=== PATIENT | male | born 1940 | race Caucasian/White ===

== ENCOUNTER 2022-09-19 14:43 | Outpatient (CLI) | payer OTHER, SELFPAY ==
[2022-09-19 15:16] LABS: Alanine Aminotransferase 15 U/L (6-50); Alkaline Phosphatase 61 U/L (38-126); Anion Gap 15 mmol/L (8-16); Aspartate Amino Transferase 20 U/L (17-59); Bilirubin,Total 0.8 mg/dL (0.2-1.3); Blood Urea Nitrogen 12 mg/dL (9-20); Calcium 8.4 mg/dL (8.4-10.2); Carbon Dioxide 21 mmol/L (22-30); Chloride 96 mmol/L (98-107); Estimated Glomerular Filt Rate > 60; Glucose 102 mg/dL (65-110); Potassium 4.4 mmol/L (3.4-5.0); Sodium 132 mmol/L (137-145)
[2022-09-19 15:23] LABS: NT Pro B Type Natriuretic Pept 1040 pg/mL (5-100)
== END 2022-09-19 14:44 | disposition home or self-care (01) ==
LOC: ANHLAB 14:44
PROVIDERS: PCP Family Medicine; Visit Provider Nurse Practitioner Family
DX: I50.9 Heart failure, unspecified (principal); R06.02 Shortness of breath
CPT/HCPCS: 36415; 80053; 83880

== ENCOUNTER 2022-09-25 09:14 | Outpatient (CLI) | payer OTHER, SELFPAY ==
--- NOTE | ~2022-09-25 | XR_ITS ---
XR chest 2V 09/25/2022 09:44 Indication: Heart failure. Bilateral lower extremity swelling. Procedure: 2 view chest Comparison: 12/30/2012 Findings: There are chronic lingular infiltrates, most likely atelectasis/scarring. Heart size normal . There is atherosclerosis of the aorta. No acute focal pneumonia, edema or effusion. There are old l eft lower rib fractures. Impression: 1: No acute cardiopulmonary disease. 2: Chronic lingular atelectasis/scarring. Reviewed, dictated and finalized at location [facility]. [facility] Impression: 1: No acute cardiopulmonary disease. 2: Chronic lingular atelectasis/scarring.
== END 2022-09-25 09:15 | disposition home or self-care (01) ==
PROVIDERS: PCP Family Medicine; Visit Provider Nurse Practitioner Family
DX: I50.9 Heart failure, unspecified (principal); J44.9 Chronic obstructive pulmonary disease, unspecified; R91.8 Other nonspecific abnormal finding of lung field
CPT/HCPCS: 71046

== ENCOUNTER 2022-10-23 12:07 | Outpatient (CLI) | payer OTHER, SELFPAY ==
--- NOTE | 2022-10-23 12:31 | ECHO_ITS ---
Patient Info Name: Tom Ocampo Age: 82 years : 1940 Gender: Male Ht: 71 in Wt: 185 lbs BSA: 2.06 m2 HR: 78 bpm BP: 151 / 78 mmHg Technical Quality: Fair Exam Date: 10/23/2022 12:38 PM Exam Location: [facility] Patient Status: Outpatient Admit Date: 10/23/2022 Staff Ordering Physician: Quyen Crowley Hunter: Paula Finn RCS Attending Provider: Quyen Crowley Referring Physician: Keo HERMOSILLO; Exam Type: CA echo doppler color flow Study Info Indications - CARDIAC MURMUR Complete two-dimensional, color flow and Doppler transthoracic echocardiogram is performed. Summary 1. Complete two-dimensional, color flow and Doppler transthoracic echocardiogram is performed. 2. Left ventricular chamber dimension is normal. 3. Left ventricular systolic function is normal, estimated at 60-65%. 4. There is mildly increased left ventricular wall thickness. 5. The left ventricular diastolic function is grade I diastolic dysfunction. 6. E/e' 11 is mildly elevated. 7. Left atrial chamber dimension is mildly enlarged. 8. There is mild aortic valve sclerosis. 9. There is trace mitral valve regurgitation. 10. No pulmonary hypertension, estimated pulmonary arterial systolic pressure is 28 mmHg. Left Ventricle E/e' 11 is mildly elevated. Left ventricular chamber dimension is normal. Left ventricular systolic function is normal, estimated at 60-65%. There is mildly increased left ventricular wall thickness. The left ventricular diastolic function is grade I diastolic dysfunction. Right Ventricle Right ventricular chamber dimension is normal. Right ventricular systolic function is normal. Left Atria Left atrial chamber dimension is mildly enlarged. Right Atria Right atrial chamber dimension is normal. Aortic Valve The aortic valve is trileaflet. There is mild aortic valve sclerosis. There is no aortic valve stenosis. There is no aortic valve regurgitation. Pulmonic Valve There is no pulmonic regurgitation. Mitral Valve There is no mitral valve stenosis. There is trace mitral valve regurgitation. Tricuspid Valve There is no tricuspid valve regurgitation. No pulmonary hypertension, estimated pulmonary arterial systolic pressure is 28 mmHg. Pericardium/Pleural There is no pericardial effusion. Inferior Vena Cava Normal inferior vena cava with >50% collapse upon inspiration consistent with normal right atrial pressure, 5 mmHg. Aorta The aortic root size at the sinus of Valsalva is normal. Left Ventricular Outflow Tract Name Value Normal LVOT 2D LVOT Diameter 2.1 cm LVOT Doppler LVOT Peak Gradient 5 mmHg LVOT Mean Gradient 3 mmHg LVOT VTI 23 cm LVOT VTI/AV VTI Ratio 0.7 LVOT Stroke Volume 81 ml LVOT CO 15.9 l/min LVOT CI 7.7 l/min/m2 Pulmonic Valve
== END 2022-10-23 12:08 | disposition home or self-care (01) ==
PROVIDERS: PCP Family Medicine; Visit Provider Nurse Practitioner Family
DX: R01.1 Cardiac murmur, unspecified (principal)
CPT/HCPCS: 93306

== ENCOUNTER 2023-06-20 09:36 | Outpatient (CLI) | payer OTHER, SELFPAY ==
[2023-06-20 10:39] LABS: Alanine Aminotransferase 17 U/L (6-50); Albumin Level 3.9 g/dL (3.5-5.1); Alkaline Phosphatase 60 U/L (38-126); Anion Gap 5 mmol/L (8-16); Aspartate Amino Transferase 25 U/L (17-59); Bilirubin,Total 0.4 mg/dL (0.2-1.3); Blood Urea Nitrogen 11 mg/dL (9-20); Calcium 8.7 mg/dL (8.4-10.2); Carbon Dioxide 25 mmol/L (22-30); Chloride 97 mmol/L (98-107); Estimated Glomerular Filt Rate > 60; Glucose 121 mg/dL (65-110); Potassium 4.5 mmol/L (3.4-5.0); Sodium 127 mmol/L (137-145)
== END 2023-06-20 09:37 | disposition home or self-care (01) ==
PROVIDERS: PCP Family Medicine; Visit Provider Family Medicine
DX: E11.65 Type 2 diabetes mellitus with hyperglycemia (principal); I10 Essential (primary) hypertension
CPT/HCPCS: 36415; 80053; 83036

== ENCOUNTER 2023-11-08 13:13 | Outpatient (CLI) | payer OTHER, SELFPAY ==
[2023-11-08 13:51] LABS: Hematocrit 42.2 % (42.0-52.0); Hemoglobin 13.6 g/dL (14.0-18.0); Mean Corpuscular HGB Conc 32.2 g/dl (32-36); Mean Corpuscular Hemoglobin 28.4 pg (26-34); Mean Corpuscular Volume 88.1 fl (80-100); Mean Platelet Volume 9.7 fl (7.4-10.4); Platelet Count Result 305 k/mm3 (150-375); Red Blood Count 4.79 M/mm3 (4.6-6.20); Red Cell Distribution Width 14.4 % (11.5-14.5); White Blood Count 6.1 K/mm3 (4.5-10.0)
[2023-11-08 13:56] LABS: Alanine Aminotransferase 19 U/L (6-50); Albumin Level 4.2 g/dL (3.5-5.1); Alkaline Phosphatase 71 U/L (38-126); Anion Gap 11 mmol/L (8-16); Aspartate Amino Transferase 26 U/L (17-59); Bilirubin,Total 0.5 mg/dL (0.2-1.3); Blood Urea Nitrogen 11 mg/dL (9-20); Carbon Dioxide 26 mmol/L (22-30); Chloride 97 mmol/L (98-107); Cholesterol 154 mg/dL (0-200); Estimated Glomerular Filt Rate > 60; Glucose 113 mg/dL (65-110); HDL Direct 34 mg/dL; Potassium 4.5 mmol/L (3.4-5.0); Sodium 134 mmol/L (137-145); Triglycerides 122 mg/dL (<150)
[2023-11-08 14:07] LABS: LDL Cholesterol Direct 87 mg/dL
[2023-11-08 14:48] LABS: Hemoglobin A1C 7.5 % (<5.7)
== END 2023-11-08 13:14 | disposition home or self-care (01) ==
LOC: ANHLAB 13:15
PROVIDERS: PCP Family Medicine; Visit Provider Family Medicine
DX: E78.2 Mixed hyperlipidemia (principal); E11.65 Type 2 diabetes mellitus with hyperglycemia; R91.1 Solitary pulmonary nodule
CPT/HCPCS: 36415; 80053; 80061; 83036; 84443; 85027

== ENCOUNTER 2024-04-10 10:18 | Outpatient (CLI) | payer OTHER, SELFPAY ==
[2024-04-10 12:58] LABS: Alanine Aminotransferase 11 U/L (6-50); Albumin Level 4.2 g/dL (3.5-5.1); Alkaline Phosphatase 62 U/L (38-126); Anion Gap 8 mmol/L (4-12); Aspartate Amino Transferase 21 U/L (17-59); Bilirubin,Total 0.6 mg/dL (0.2-1.3); Blood Urea Nitrogen 12 mg/dL (9-20); Carbon Dioxide 22 mmol/L (22-30); Chloride 103 mmol/L (98-107); Estimated Glomerular Filt Rate > 60; Glucose 116 mg/dL (65-110); Potassium 4.1 mmol/L (3.4-5.0); Sodium 133 mmol/L (137-145)
== END 2024-04-10 10:19 | disposition home or self-care (01) ==
PROVIDERS: PCP Family Medicine; Visit Provider Family Medicine
DX: I10 Essential (primary) hypertension (principal); E11.65 Type 2 diabetes mellitus with hyperglycemia
CPT/HCPCS: 36415; 80053; 83036

== ENCOUNTER 2024-09-30 10:39 | Outpatient (CLI) | payer OTHER, SELFPAY ==
[2024-09-30 11:05] LABS: Alanine Aminotransferase 10 U/L (6-50); Albumin Level 4.3 g/dL (3.5-5.1); Alkaline Phosphatase 56 U/L (38-126); Anion Gap 5 mmol/L (4-12); Aspartate Amino Transferase 19 U/L (17-59); Bilirubin,Total 0.6 mg/dL (0.2-1.3); Blood Urea Nitrogen 14 mg/dL (9-20); Calcium 9.1 mg/dL (8.4-10.2); Carbon Dioxide 28 mmol/L (22-30); Chloride 102 mmol/L (98-107); Estimated Glomerular Filt Rate > 60; Glucose 107 mg/dL (65-110); Potassium 4.5 mmol/L (3.4-5.0); Sodium 135 mmol/L (137-145)
[2024-09-30 13:01] LABS: Hemoglobin A1C 7.3 % (<5.7)
== END 2024-09-30 10:40 | disposition home or self-care (01) ==
PROVIDERS: PCP Family Medicine; Visit Provider Family Medicine
DX: E11.65 Type 2 diabetes mellitus with hyperglycemia (principal)
CPT/HCPCS: 36415; 80053; 83036

== ENCOUNTER 2025-01-02 10:56 | Outpatient (CLI) | payer OTHER, SELFPAY ==
[2025-01-02 11:44] LABS: Hematocrit 41.3 % (42.0-52.0); Hemoglobin 13.7 g/dL (14.0-18.0); Mean Corpuscular HGB Conc 33.2 g/dl (32-36); Mean Corpuscular Hemoglobin 29.5 pg (26-34); Mean Corpuscular Volume 88.8 fl (80-100); Mean Platelet Volume 10.6 fl (7.4-10.4); Platelet Count Result 298 k/mm3 (150-375); Red Blood Count 4.65 M/mm3 (4.6-6.20); Red Cell Distribution Width 13.3 % (11.5-14.5); White Blood Count 7.3 K/mm3 (4.5-10.0)
[2025-01-02 11:49] LABS: Add Urine Microscopic? NO; Appearance Urine Clear (Clear); Bilirubin Urine Negative (Negative); Blood Urine Negative (Negative); Color Urine Yellow (Yellow); Glucose Urine UA Negative (Negative); Ketones Urine Negative (Negative); Leukocyte Esterase Ur Negative LEU/UL (Negative); Nitrate Urine Negative (Negative); Protein Urine Negative (Negative); Specific Grav Ur 1.013 (1.001-1.035); Urobilinogen Urine 0.2 mg/dL (<2.0); pH Urine 5.5 (5.0-9.0)
[2025-01-02 12:12] LABS: Alanine Aminotransferase 14 U/L (6-50); Albumin Level 3.9 g/dL (3.5-5.1); Alkaline Phosphatase 74 U/L (38-126); Anion Gap 9 mmol/L (4-12); Aspartate Amino Transferase 20 U/L (17-59); Bilirubin,Total 0.6 mg/dL (0.2-1.3); Blood Urea Nitrogen 9 mg/dL (9-20); Calcium 9.1 mg/dL (8.4-10.2); Carbon Dioxide 28 mmol/L (22-30); Chloride 97 mmol/L (98-107); Cholesterol 142 mg/dL (0-200); Estimated Glomerular Filt Rate > 60; Glucose 112 mg/dL (65-110); HDL Direct 45 mg/dL; Potassium 4.5 mmol/L (3.4-5.0); Sodium 134 mmol/L (137-145); Triglycerides 122 mg/dL (<150)
[2025-01-02 12:23] LABS: LDL Cholesterol Direct 73 mg/dL
[2025-01-02 15:35] LABS: Creatinine Urine 77.2 mg/dL
[2025-01-02 15:39] LABS: MALB Creatinine Ratio 25.6 mg/g (0-30); Microalbumin Urine Random 19.8 mg/L (0-16.7)
[2025-01-02 16:14] LABS: Hemoglobin A1C 7.1 % (<5.7)
== END 2025-01-02 10:57 | disposition home or self-care (01) ==
LOC: ANHLAB 10:58
PROVIDERS: PCP Family Medicine; Visit Provider Family Medicine
DX: J44.9 Chronic obstructive pulmonary disease, unspecified (principal); E11.65 Type 2 diabetes mellitus with hyperglycemia; I11.0 Hypertensive heart disease with heart failure; I50.9 Heart failure, unspecified; E78.2 Mixed hyperlipidemia
CPT/HCPCS: 36415; 80053; 80061; 81003; 82043; 83036; 84443; 85027

== ENCOUNTER 2025-05-07 07:55 | Outpatient (CLI) | payer OTHER, SELFPAY ==
[2025-05-07 08:33] LABS: Hematocrit 43.7 % (42.0-52.0); Hemoglobin 14.2 g/dL (14.0-18.0); Mean Corpuscular HGB Conc 32.5 g/dl (32-36); Mean Corpuscular Hemoglobin 28.5 pg (26-34); Mean Corpuscular Volume 87.6 fl (80-100); Platelet Count Result 300 k/mm3 (150-375); Red Blood Count 4.99 M/mm3 (4.6-6.20); White Blood Count 7.1 K/mm3 (4.5-10.0)
[2025-05-07 08:44] LABS: Alanine Aminotransferase 12 U/L (6-50); Albumin Level 4.5 g/dL (3.5-5.1); Alkaline Phosphatase 72 U/L (38-126); Anion Gap 11 mmol/L (4-12); Aspartate Amino Transferase 22 U/L (17-59); Bilirubin,Total 0.6 mg/dL (0.2-1.3); Blood Urea Nitrogen 11 mg/dL (9-20); Calcium 9.3 mg/dL (8.4-10.2); Carbon Dioxide 24 mmol/L (22-30); Chloride 97 mmol/L (98-107); Estimated Glomerular Filt Rate > 60; Glucose 117 mg/dL (65-110); Potassium 4.5 mmol/L (3.4-5.0); Sodium 132 mmol/L (137-145); Total Protein 8.4 g/dL (6.3-8.2)
[2025-05-07 09:59] LABS: Hemoglobin A1C 7.2 % (<5.7)
== END 2025-05-07 07:56 | disposition home or self-care (01) ==
PROVIDERS: PCP Family Medicine; Visit Provider Family Medicine
DX: I10 Essential (primary) hypertension (principal); E11.65 Type 2 diabetes mellitus with hyperglycemia
CPT/HCPCS: 36415; 80053; 83036; 85027

== ENCOUNTER 2025-10-07 12:59 | Outpatient (CLI) | payer OTHER, SELFPAY ==
[2025-10-07 13:40] LABS: Alanine Aminotransferase 14 U/L (6-50); Albumin Level 4.2 g/dL (3.5-5.1); Alkaline Phosphatase 79 U/L (38-126); Anion Gap 6 mmol/L (4-12); Aspartate Amino Transferase 21 U/L (17-59); Bilirubin,Total 0.6 mg/dL (0.2-1.3); Blood Urea Nitrogen 27 mg/dL (9-20); Calcium 9.2 mg/dL (8.4-10.2); Carbon Dioxide 26 mmol/L (22-30); Chloride 99 mmol/L (98-107); Estimated Glomerular Filt Rate > 60; Glucose 133 mg/dL (65-110); Potassium 5.0 mmol/L (3.4-5.0); Sodium 131 mmol/L (137-145); Total Protein 7.6 g/dL (6.3-8.2)
[2025-10-07 13:41] LABS: Hemoglobin A1C 7.1 % (<5.7)
== END 2025-10-07 13:00 | disposition home or self-care (01) ==
LOC: ANHLAB 13:01
PROVIDERS: PCP Family Medicine; Visit Provider Family Medicine
DX: E11.65 Type 2 diabetes mellitus with hyperglycemia (principal)
CPT/HCPCS: 36415; 80053; 83036